=== PATIENT | female | born 1980 | race African-American/Black ===

== ENCOUNTER 2019-04-03 07:46 | Day surgery (SDC) | payer OTHER ==
[2019-04-03] VITALS (15 sets, daily range): BP systolic 91–120; BP diastolic 44–73; PULSE 58–70; RESP 10–18
[~2019-04-03 07:46] MED LIST: CEFAZOLIN 2 GM/50 ML (PMX) 50 ML IVPB SCH; SOD CHLORIDE 0.9% 1,000 ML IV SCH
[2019-04-03] MEDS ORDERED: CEFAZOLIN 1 GM INJ ONE (09:00)
[2019-04-03] MEDS ORDERED: EPHEDrine SULFATE 50 MG/5 ML SYG ONE (09:00)
[2019-04-03] MEDS ORDERED: DEXAMETHASONE 4 MG/ML 5 ML INJ ONE (09:10)
[2019-04-03] MEDS ORDERED: PROPOFOL 20 ML ONE ×2 (09:10→10:49)
[2019-04-03] MEDS ORDERED: MIDAZOLAM 1 MG/ML 2 ML INJ ONE (09:10)
[2019-04-03] MEDS ORDERED: ONDANSETRON 4 MG INJ ONE (09:10)
[2019-04-03] MEDS ORDERED: LIDOCAINE 2% (SDV) 5 ML INJ ONE (09:10)
[2019-04-03] MEDS ORDERED: BUPIVACAINE 0.25%/EPI (SDV) 30 ML INJ ONE (09:22)
[2019-04-03] MEDS ORDERED: LIDOCAINE 1%/EPI 30 ML INJ ONE (09:22)
--- NOTE | 2019-04-03 09:48 | PAC ---
Date/Time of Note Date/Time of Note DATE: 04/03/19 TIME: 09:47 Post-Anesthesia Notes Post-Anesthesia Note Last documented vital signs Bp 116/52, 100%, 105, 14, 98.7 Vital Signs Date Temp Pulse Resp B/P (MAP) Pulse Ox O2 O2 Flow FiO2 Time Delivery Rate 04/03/19 98.2 58 16 119/73 100 Room Air 08:51 (88) Activity: WNL Respiratory function: WNL Cardiovascular function: WNL Mental status: Baseline Pain reasonably controlled: Yes Hydration appropriate: Yes Nausea/Vomiting absent: Yes ELIS HERNÁNDEZ CRNA Apr 03, 2019 09:48
--- NOTE | 2019-04-03 09:58 | PREAC ---
Date/Time of Note Date/Time of Note DATE: 04/03/19 TIME: 09:56 Anesthesia Eval and Record Evaluation Time Pre-Procedure Interview DATE: 04/03/19 TIME: 09:56 Age 39 Sex female NPO: 8 hrs Preoperative diagnosis Right should mass Planned procedure right shoulder mass excision Past Medical History Past Medical History: Includes Pulm: Asthma Surgery & Anesthesia Issues No known issue Meds Anticoagulation: No Beta Dianne within 24 hr: No Reason Beta Dianne not given: Pt. not on B-Dianne No Active Prescriptions or Reported Meds Current Medications Sodium Chloride 1,000 ml @ 75 mls/hr [id number] IV Last administered on 04/03/19at 06:00; Admin Dose 75 MLS/HR; Start 04/03/19 at 06:00; Stop 04/03/19 at 19:19 Cefazolin Sodium/ Dextrose 50 ml @ 100 mls/hr PREOP IVPB ; Start 04/03/19 at 06:00; Stop 04/03/19 at 19:00 Meds reviewed: Yes Allergies Coded Allergies: No Known Allergy (Unverified , 04/03/19) Allergies Reviewed: Yes Labs/Studies Labs Reviewed: Reviewed by anesthesiologist test: Negative Pre-procedure Exam Last vitals Vital Signs Date Temp Pulse Resp B/P (MAP) Pulse Ox O2 O2 Flow FiO2 Time Delivery Rate 04/03/19 98.2 58 16 119/73 100 Room Air 08:51 (88) Airway: Adequate mouth opening, Adequate thyromental dist Mallampati: Mallampati I Teeth: Normal Lung: Normal Heart: Normal ASA Physical Status ASA physical status: 2 Emergency: None Planned Anesthetic General/MAC: LMA Pre-operative Attestations Prior to commencing anesthesia and surgery, the patient was re-evaluated, there was verification of: *The patient's identity *The results of appropriate recent lab work and preoperative vital signs *The above evaluation not changing prior to induction *Anesthetic plan, risk benefits, alternative and complications discussed with patient/family; questions answered; patient/family understands, accepts and wishes to proceed. ELIS HERNÁNDEZ CRNA Apr 03, 2019 09:58
[2019-04-03] MEDS ORDERED: OXYCODONE/ACETAMINOPHEN (5/325) TAB PO PRN ×4 (10:00)
[2019-04-03] MEDS ORDERED: LABETALOL HCL 20MG INJ IV PRN (10:00)
[2019-04-03] MEDS ORDERED: ONDANSETRON 4 MG INJ IV PRN ×3 (10:00→12:00)
[2019-04-03] MEDS ORDERED: MEPERIDINE 25 MG INJ IV PRN ×2 (10:00)
[2019-04-03] MEDS ORDERED: FENTAnyl 50 MCG/ML VIAL IV PRN ×4 (10:00)
[2019-04-03] MEDS ORDERED: KETOROLAC 30 MG INJ ONE (10:53)
[2019-04-03] MEDS ORDERED: LACTATED RINGER'S 1,000 ML IV SCH (11:43)
--- NOTE | 2019-04-03 11:43 | SIPON ---
Date/Time of Note Date/Time of Note DATE: 04/03/19 TIME: 11:41 Operative Report Preoperative Diagnosis Subcutaneous mass right posterior shoulder. Postoperative Diagnosis The same. Operation/Procedure Performed Excision of subcutaneous mass right posterior shoulder. Local flap advancement for better closure. Surgeon see signature line melter assistant None Anesthesia: general Estimated blood loss: minimal Transfusion Required none Specimen Specimen sent for pathology evaluation. Grafts/Implants none Complications none SAMANTHA PAULINO MD Apr 03, 2019 11:43
[2019-04-03] MEDS ORDERED: morphine 2 MG INJ IV PRN (12:00)
[2019-04-03] MEDS ORDERED: HYDROCODONE/APAP (5/325) TAB PO PRN (12:00)
--- NOTE | 2019-04-04 20:16 | OPR ---
DATE OF OPERATION: 04/03/2019 PREOPERATIVE DIAGNOSIS: Right shoulder subcutaneous mass posteriorly. POSTOPERATIVE DIAGNOSIS: Right shoulder subcutaneous mass posteriorly, pending pathology report. OPERATION PERFORMED: Excision of the right shoulder mass and repair of the defect in 2 layers and placement of a Annika drain under Subcutaneous area and local flap advancement for better closure. ANESTHESIA: General. SURGEON Jhoan White MD PATCHER WOOD WELDER: None. ANESTHESIA: General and local. ANESTHESIOLOGIST: Mr. Catracho Reza, certified nurse paper mill supervisor. INDICATION: This is a 39-year-old female who presented to clinic complaining of presence of a mass over her right shoulder posteriorly. It was bothering her and she wanted that to be removed. Discussed with the patient alternatives of treatment, risks and benefits of operation, possible complications including bleeding, hematoma formation at the site of operation, infection, formation of a wide scar, chronic pain, and possible recurrence of the mass. The patient understood, accepted, and wanted the procedure to be done. DESCRIPTION OF PROCEDURE: The patient, after being seen in the holding area and signing the consent for operation, was brought to the operating room, placed on operating table in supine position. Anesthesia was induced by the anesthesiologist. Then the position of the patient was changed to left down decubitus to expose the area of the operation. Then 2 grams of Ancef antibiotic was given to the patient IV by the anesthesiologist. The area of the operation was prepped with Betadine and draped in a sterile fashion. All through the operation, a mixture of 0.25% Marcaine with epinephrine 30 mL plus 30 mL of 1% lidocaine with epinephrine was used for local anesthesia and postop analgesia. After the timeout was called and patient was identified, site of operation, then a skin incision was made transversely about 5 cm, carried down through subcutaneous tissue. The mass appeared to be a lipoma, but it had projections and was not encapsulated completely. It was in the shape of multiple projections that had it, so gradually this was dissected off the surrounding tissue using electrocautery Bovie and also taking advantage of local injection to be able to remove it from superior and inferior part of the incision. Skin flaps had to be developed. Eventually this mass was completely removed. The size of the mass dimensions were about 5 x 5 cm. The tumor was passed off to the circulating nurse to be sent for pathologic evaluation. Wound was thoroughly irrigated with normal saline solution. More mixture of the local anesthetic was used, especially in the area, but the mass was attached to the fascia of the muscle and also spine of the scapula. Then a [place] drain half an inch was introduced into the wound through a separate stab incision, inferior part of the incision, and was placed under the skin flap which had been developed superiorly. Sutured to the skin. Then closure started using #2-0 Vicryl for fascial closure and the skin was closed with #3-0 Prolene in continuous running subcuticular fashion. At the end, dry dressing was applied. The patient tolerated procedure well. Sponge, instrument count reported to be correct x2. Specimen was sent for further evaluation. Estimated blood loss 5 mL. At this time, the patient was placed in supine position and extubated, and in stable condition, was transferred to recovery room. Dictated By: JHOAN BRUMFIELD/JODI Conf#: [id number] DID#: [id number] MTDD
== END 2019-04-03 13:16 | disposition home or self-care (01) ==
LOC: SDS 07:46
DX: D17.21 Benign lipomatous neoplasm of skin and subcutaneous tissue of right arm (principal); J45.909 Unspecified asthma, uncomplicated
CPT/HCPCS: 14000; 88307; J0690; J1100; J1885; J2250; J2405; J3010; Z7512; Z7610